=== PATIENT | male | born 1980 | race Caucasian/White ===

== ENCOUNTER 2017-07-15 16:21 | Emergency (ER) | payer SELFPAY ==
[2017-07-15] MEDS ORDERED: THIAMINE 100 MG/ML 100 MG/ML SOL IM ONE (16:47)
[2017-07-15] MEDS ORDERED: THIAMINE 100 MG/ML 100 MG/ML SOL ONE (16:58)
[2017-07-15] MEDS ORDERED: FOLIC ACID 1 MG TAB PO ONE (17:05)
[2017-07-15 17:08] LABS: BASOPHILS % (AUTO) 1 % (0-3); EOSINOPHILS % (AUTO) 1 % (0-9); HEMATOCRIT 48 % (39-53); MEAN CORPUSCULAR HGB CONC 33.2 gm/dl (32.0-36.0); MEAN CORPUSCULAR VOLUME 92 fL (80-100); MONOCYTES % (AUTO) 5.2 % (0-12); NEUTROPHILS % (AUTO) 80.8 % (37-80)
[2017-07-15] MEDS ORDERED: FOLIC ACID 1 MG TAB ONE (17:09)
[2017-07-15 17:31] LABS: ALBUMIN 3.5 gm/dl (3.4-5.0); BILIRUBIN,DIRECT 0.1 mg/dl (0.0-0.2); MAGNESIUM 2.4 mg/dl (1.8-2.4); THYROID STIMULATING HORMONE 1.594 uIU/ml (0.358-3.740)
[2017-07-15 17:51] VITALS: RESP 24
[2017-07-15 17:52] VITALS: TEMP 98
[2017-07-15 17:55] LABS: AMPHETAMINES NEGATIVE (NEGATIVE); METHADONE NEGATIVE (NEGATIVE); OPIATES(OP13) NEGATIVE (NEGATIVE); OXYCODONE(OXY) NEGATIVE (NEGATIVE); PROPOXYPHENE(PPX) NEGATIVE (NEGATIVE); TRICYCLIC ANTIDEPRESSANTS NEGATIVE (NEGATIVE)
[2017-07-15 18:12] LABS: ABG PH 7.44 (7.35-7.45)
[2017-07-15 20:38] VITALS: BP 158/95; PULSE 95; O2SAT 95
== END 2017-07-15 21:04 | DRG 897 ==
LOC: ED 16:21
DX: F15.120 Other stimulant abuse with intoxication, uncomplicated (principal); T18.9XXA Foreign body of alimentary tract, part unspecified, initial encounter
CPT/HCPCS: 36415; 36600; 74177; 80076; 80305; 80307; 82550; 82803; 83735; 84443; 85025; 85610; 99285; Q9967